=== PATIENT | female | born 1995 | race Caucasian/White ===

== ENCOUNTER 2022-11-06 18:49 | Inpatient (IN) | payer OTHER, SELFPAY ==
[2022-11-06] VITALS (9 sets, daily range): BP systolic 101–130; BP diastolic 59–75; PULSE 90–153; RESP 12–21; TEMP 36.8–37.5; O2SAT 96–100; BMI 20.9; BMI 20.3
--- NOTE | 2022-11-06 18:51 | PC.NURSE ---
at this time pt is obversed to be tachy on the monitor and pale and weak. Dr. Workman notified and came to bedside immediately. moved phototypesetting equipment monitor from another room and placed pt on monitor. on assessment of patient she denies any abd. pain nausea or vomiting. but on palpation of abdomen there is a large hard mass like object felt right above the pt umbilicus.
--- NOTE | 2022-11-06 18:53 | PC.NURSE ---
1852 pt changed into a gown, Dr. Workman at pt bedside still with ultrasound for assessment. after assessment with this nurse. after assessment pt given warm wash cloths to clean off with. pt denies any pain at this time and just reports feeling tired.
--- NOTE | 2022-11-06 19:10 | PC.NURSE ---
pt noted to still be tachycardic and weak on assessment. pt provided warm blankets and moved to room 6 for closer evaluation and further examination
--- NOTE | 2022-11-06 19:16 | HMH.EDGENADL ---
Discharge Plan Disposition Patient Disposition: Admitted As Inpatient Condition: Serious Clinical Impressions Clinical Impression: Spontaneous , Leukocytosis, Septic shock, Endometritis Discharge ED Provider: Tyson Workman General Adult HPI General Chief complaint: Vaginal Bleeding Stated complaint: Possible Miscarriage Time Seen by Provider: 11/06/22 18:55 History of Present Illness HPI narrative: History obtained from patient and grandfather. She did not feel well today and apparently laid down on the mattress at her grandfather's construction site and grandfather noted a large amount of blood on the mattress and brought her to the emergency department. She denies any pain. She states that her last menstrual period was 1 month ago. She has never been . She denies any other illness including any symptoms of URI, no vomiting or diarrhea. Grandfather states that he has been telling her for the past couple of months that she looks , abdomen becoming enlarged. Related Data Allergies Allergy/AdvReac Type Severity Reaction Status Date / Time No Known Allergies Allergy Verified 11/06/22 20:01 [facility] Disclaimer: The information contained in this section may have been updated after the patient was seen, as this information can be updated by other users. Medical History (Updated 11/06/22 @ 20:21 by Tyson Workman MD) SIRS (systemic inflammatory response syndrome) Social History Smoking Status: Never smoker ROS Obtained: Yes Systems reviewed as appropriate & no additional complaints except as documented Constitutional Constitutional: Denies fever(s), Denies headache(s) and Denies weakness ENT Ears, Nose, Mouth, and Throat: Denies headache(s), Denies nasal discharge and Denies sore throat Cardiovascular Cardiovascular: Denies chest pain Respiratory Respiratory: Denies shortness of breath and Denies cough Gastrointestinal Gastrointestingal: Denies abdominal pain, constipation, diarrhea or vomiting Genitourinary Female Genitourinary: Denies difficulty voiding, Denies dysuria and Denies flank pain Musculoskeletal Musculoskeletal: Denies numbness Neurologic Neurologic: Denies headache(s), Denies numbness and Denies weakness Physical Exam General General appearance: alert Comment: Tachycardic and pale. Appears apprehensive. Head Head exam: atraumatic and normocephalic Eye Eye exam: Present normal appearance and EOMI ENT ENT exam: Present mucous membranes moist Neck Neck exam: Present normal inspection and trachea midline Chest Chest inspection: Present normal inspection and symmetric chest wall rise Respiratory Respiratory exam: Present normal lung sounds bilaterally; Absent respiratory distress Cardiovascular Cardiovascular exam: Present normal rhythm, tachycardia and normal heart sounds Abdominal Exam Abdominal exam: Present soft and normal bowel sounds; Absent tenderness, guarding, rebound or rigidity Comment: Palpable mass in the suprapubic area consistent with uterine fundus. Extremities Exam Extremities exam: Present normal inspection Neurological Exam Neurological exam: Present alert and oriented X3 Psychiatric Psychiatric exam: Present normal affect and normal mood Skin Skin exam: Present warm and dry Medical Decision Making Rene Inquiry Pt receiving controlled substance: No Vital Signs: 11/06/22 18:49 Temperature 98.3 F Temperature Source Oral Pulse Rate [Left Radial] 153 H Respiratory Rate 20 Blood Pressure [Right Arm] 109/68 L Blood Pressure Mean [Right Arm] 81 Blood Pressure Source [Right Arm] Automatic Cuff Blood Pressure Position [Right Arm] Sitting 02 Sat by Pulse Oximetry 100 Oxygen Delivery Method Room Air Lab Data Lab results reviewed: Yes I reviewed the patient's lab results. Lab Results 11/06/22 19:00: WBC 34.0 H*, RBC 3.56 L, Hgb 10.9 L, Hct 32.6 L, MCV 91.5, MCH 30.7, MCHC 33.6, RDW 13.6, Plt Count 477 H, MPV 8.6, Neut % (
--- NOTE | 2022-11-06 19:20 | PC.NURSE ---
assisted with vaginal exam. PT tolerated well. Placed back in a comfortable position.
--- NOTE | 2022-11-06 19:27 | PC.NURSE ---
this nurse and NUNO Cheek still at pt bedside for further assessment and questioning about events leading up to her coming to the ED. pt continues to state that she believes she is having a miscarriage but when asked to go into further detail as to why she thought that she stated i just do with no further explanation. pt denies any pain or discomfort at this time
--- NOTE | 2022-11-06 19:29 | PC.NURSE ---
Called OB to have Dr. Escudero come down and consult
[2022-11-06 19:31] LABS: Basophils # 0.1 K/mm3 (0-0.2); Basophils % 0.2 % (0.1-2.0); Eosinophils % 0.1 % (0.1-12.0); Hematocrit 32.6 % (37.0-47.0); Hemoglobin 10.9 g/dL (12.2-16.2); Lymphocytes # 1.7 K/mm3 (0.7-4.5); Lymphocytes % 4.9 % (10-50); Mean Corpuscular HGB Conc 33.6 g/dL (31.8-35.4); Mean Corpuscular Hemoglobin 30.7 pg (27.0-31.2); Mean Corpuscular Volume 91.5 fl (81-99); Mean Platelet Volume 8.6 fl (7.4-10.4); Monocytes # 1.8 K/mm3 (0.1-1.0); Monocytes % 5.2 % (1.7-9.3); Neutrophils # 30.4 K/mm3 (1.8-7.8); Neutrophils % 89.6 % (37.0-80.0); Platelet Count 477 K/mm3 (142-424); Red Blood Count 3.56 M/mm3 (4.20-5.40); Red Cell Distribution Width 13.6 % (11.5-17.5)
[2022-11-06 19:32] LABS: Anion Gap 18.1 mEq/L (5-15); Blood Urea Nitrogen 12 mg/dl (7-17); Calcium 8.9 mg/dl (8.4-10.2); Carbon Dioxide 17 mmol/L (22.0-30.0); Chloride 100 mmol/L (98-107); Creatinine Clearance Estimated 85 mL/min (50-200); Estimated Glomerular Filt Rate 75 ml/min (>60); GFR (African American) 91 ML/MIN (>60); Glucose 152 mg/dl (74-100); Potassium 4.1 mmoL/L (3.5-5.1); Sodium 131 mmol/L (136-145)
--- NOTE | 2022-11-06 19:33 | ECG_ITS ---
APPROVED REPORT Exam: Resting ECG HR:121 bpm ECG Measurements Heart Rate 121 AXES KS 125 P 77 QRSd 66 QRS 90 QT 294 T 65 QTc 366 Conclusion SINUS TACHYCARDIA O/w normal ecg UNCONFIRMED REPORT Electronically signed by : Jase Soto MD 11/07/2022 17:06:17
[2022-11-06 19:34] LABS: MANUAL DIFFERENTIAL MANUAL DIFFERENTIAL (MANUAL DIFF)
--- NOTE | 2022-11-06 19:36 | PC.NURSE ---
NUNO Cheek and this nurse at pt bedside for further assessment. during this conversation the patient went into further detail about how she started bleeding sometime today when she was sleeping and when she woke up her clothes and the bed was covered in blood. she stated she looked under the covers and that she appeared to have a miscarriage. when asked about her last menstrual cycle she then tells us that her last menstrual cycle was actually 5 months ago and when i had her describe what it looked like to her she held her hands out and made the shape of the size of an orange and said the head was about this big' and held up arms to about 12 inches and said the body was about this long. this nurse asked the patient where the baby was and she said it was under the blankets in the house her grandpa was working at and that she told her grandpa about it. when i asked the grandpa he stated he knew about it but didnt look under the covers.
[2022-11-06 19:37] LABS: HCG Qualitative, Serum Positive (Negative)
--- NOTE | 2022-11-06 19:39 | PC.NURSE ---
pt states that last night while at work she started around 9:30pm with sharp stabbing abdominal pain that lasted until the morning around 5:30am when the pain eased up. States that around 10-11am she started with vaginal bleeding and then around noon she miscarried while sleeping. At this time asked the pt to describe what the fetus looked like. Pt nods that feet and hands were present and it looked like a baby.
--- NOTE | 2022-11-06 19:40 | PC.NURSE ---
called [place] dispatch for assistance in getting officers and EMS over to the reported house. they stated it wasnt in their district and to call [place] dispatch
--- NOTE | 2022-11-06 19:41 | PC.NURSE ---
Dr. Escudero consulting with Dr. Workman at this time.
--- NOTE | 2022-11-06 19:43 | PC.NURSE ---
Dr. Escudero at BS
--- NOTE | 2022-11-06 19:44 | PC.NURSE ---
called [place] dispatch and explained to them the patient story and that we believe there could possible be a full term baby in the home the patient came from that we are unaware if its alive or not and that they need to send an office out with ems to the house.
--- NOTE | 2022-11-06 19:44 | PC.NURSE ---
A Pablo RN at bedside with Dr. Garcia for vaginal exam.
--- NOTE | 2022-11-06 19:50 | PC.NURSE ---
Assisted Dr. Humphrey with pelvic exam. PT tolerated well. Pt put back to a comfortable position and warm blankets was given.
--- NOTE | 2022-11-06 19:51 | PC.NURSE ---
Addendum entered by Kathi Masters RN 11/07/22 11:48: *unacceptable (spelling error) Original Note: spoke with [place] dispatch again who stated that they werent able to send an officer or ems at this time and that they were going to have to have the grandfather of the patient who has the white to the house bring the keys there and tell them [place]. this nurse spoke with the grandfather while talking to dispatch who gave permission for the police to enter the house and check if the baby is alive. dispatch stated that it didnt matter and that he would have to bring the keys himself. this nurse explained that that was acceptable and that their could be an alive baby in that house in distress and asked them to have the office call me immediately.
--- NOTE | 2022-11-06 19:53 | PC.NURSE ---
Dr. Garcia would like [facility] called in for a pelvic u/s. Radiology notified
--- NOTE | 2022-11-06 19:54 | PC.NURSE ---
Pt asking about grandfather and if her was outside. States that she is staying the night so he could go home if he wanted too. Went out side to lobby and front entrance to find grandfather who is not present at this time, pt aware
--- NOTE | 2022-11-06 19:54 | US_ITS ---
PROCEDURE INFORMATION: Exam: US Nonobstetric Pelvis; Complete Exam date and time: 11/06/2022 8:16 PM Age: 27 years old Clinical indication: Patient HX: PT presented to er with heavy vag bleeding x 8 hrs-- it was then discovered PT delivered at home poss full term baby -- it was later determined placenta was delivered by ob at time of US; Additional info: S/P delivery of poss 5 mn fetus, vaginal bleeding TECHNIQUE: Imaging protocol: Transabdominal pelvic nonobstetric ultrasound. Complete exam. Real time ultrasound with image documentation. COMPARISON: No relevant prior studies available. FINDINGS: Uterus: Enlarged uterus measures 18.7 x 6.9 x 10.3 cm. Questionable retained placental tissue along the posterior uterine wall. Endometrial stripe thickness: Poorly delineated heterogeneously thickened focally hyperemic endometrium measuring approximately 1.7-2.1 cm in thickness containing debris, blood/fluid. Right ovary/adnexa: Measures approximately 6.3 mL. Left ovary/adnexa: Measures approximately 8.0 mL. Intraperitoneal space: No discernible adnexal mass or abnormality. No free fluid within the pelvis. Urinary bladder: Distended urinary bladder appears unremarkable. IMPRESSION: 1. Heterogeneously thickened focally hyperemic endometrium demonstrating blood/debris with questionable retained placental tissue along the posterior uterine wall. 2. Differential diagnosis includes normal changes versus retained products of conception and less likely acute endometritis/PID. 3. Recommend correlation with pertinent clinical history and follow-up as indicated.
[2022-11-06 19:58] LABS: Coronavirus 19, PCR Not Detected (NotDetected); Influenza A, PCR Not Detected (NotDetected); Influenza B, PCR Not Detected (NotDetected)
--- NOTE | 2022-11-06 19:59 | PC.NURSE ---
this nurse spoke to Officer Verna and expressed to him the same concern and that we have to assume the baby is alive and possibly in distress and that they need to use whatever means necessary to get into the house. he said since the story wasnt clear that he will have to call his supervisor [employer] to see what he can do
[2022-11-06 20:09] LABS: Lactic Acid 4.4 mmol/L (0.7-2.1)
--- NOTE | 2022-11-06 20:09 | EXP.HP ---
History of Present Illness *Admission Date: 11/06/22 *Reason for visit:: Spontaneous of unknown gestational age, SIRS *History of present illness: Ms Donna Davison is a 27 yo female who presented to ED with complaint of vaginal bleeding. She stated she had not had a period for 5-6 months. She states she worked 3rd shift last night and started having sharp abdominal pains. Pain stopped around 0530. After she got off of work this morning she went to the construction site/home that was being remodeled by her grandfather. The house is vacant but had a mattress in one of the rooms. She states she woke up around noon in a pool of blood. She told the RN that she had a baby at the construction site on that mattress. She stated she did not know she was prior to delivery. She stated her and her grandfather covered the baby up with a blanket after delivery. She presented to the ED about 1850 this evening. Unsure of what happened between delivery around noon per patient and arrival to ED by private vehicle. [facility] Disclaimer: The information contained in this section may have been updated after the patient was seen, as this information can be updated by other users. Social History Smoking Status: Never smoker alcohol intake: current current occupational status: employed Travel in the last 8 weeks: None Review of Systems Review of Systems Review of systems:: pertinent systems reviewed and negative unless documented below Constitutional Constitutional: Denies headache(s) and Denies weakness ENT Ears, Nose, Mouth, and Throat: Denies headache(s) *Cardiovascular Cardiovascular: Denies chest pain and Denies dyspnea *Respiratory Respiratory: Denies dyspnea *Gastrointestinal Gastrointestinal: Denies abdominal pain, Denies nausea and Denies vomiting *Musculoskeletal Musculoskeletal: Denies numbness *Neurologic Neurologic: Denies headache(s), Denies numbness and Denies weakness Meds Home Medications and Allergies New Prescriptions to Start Prescriptions: Allergies Allergy/AdvReac Type Severity Reaction Status Date / Time No Known Allergies Allergy Verified 11/06/22 20:01 Exam Data for Last 24 hours Vital signs and Labs for Last 24 Hours: Temp Pulse Resp BP Pulse Ox 98.3 F 153 H 20 109/68 L 100 11/06/22 18:49 11/06/22 18:49 11/06/22 18:49 11/06/22 18:49 11/06/22 18:49 Laboratory Results - last 24 hr 11/06/22 19:00: WBC 34.0 H*, RBC 3.56 L, Hgb 10.9 L, Hct 32.6 L, MCV 91.5, MCH 30.7, MCHC 33.6, RDW 13.6, Plt Count 477 H, MPV 8.6, Neut % (Auto) 89.6 H, Lymph % (Auto) 4.9 L, [place] % (Auto) 5.2, Eos % (Auto) 0.1, Baso % (Auto) 0.2, Neut # (Auto) 30.4 H, Lymph # (Auto) 1.7, [place] # (Auto) 1.8 H, Eos # (Auto) 0.0, Baso # (Auto) 0.1 11/06/22 19:00: Sodium 131 L, Potassium 4.1, Chloride 100, Carbon Dioxide 17 L, Anion Gap 18.1 H, BUN 12, Creatinine 0.90, Estimated Creat Clear 85, Estimated GFR 75, Est GFR ( Amer) 91, Glucose 152 H, Calcium 8.9 11/06/22 19:00: Serum HCG, Qual Positive I & O for Last 24 hours: Intake & Output 11/03/22 11/04/22 11/05/22 11/06/22 23:59 23:59 23:59 23:59 Weight 126 lb Constitutional Constitutional: no acute distress *Routine HEENT Exam Head: Present normocephalic and atraumatic Eye: Absent conjunctivae pink ENT: Present mucous membranes moist *Routine Neck Exam Neck: Present full ROM *Routine Respiratory Exam Respiratory: Present CTA bilaterally and normal respiratory effort *Routine Cardiovascular Exam Cardiovascular: Present RRR *Routine Abdominal Exam Abdominal: Present soft; Absent tenderness or distended Comments: Uterine fundus firm and below umbilicus *Routine Rectal Exam Rectal:: deferred *Routine Genitalia Exam Genitalia:: normal female *Routine Extremities Exam Extremities: Absent edema or calf tenderness *Routine Neurological Exam Neurological: Present alert, oriented X3 and
--- NOTE | 2022-11-06 20:09 | PC.NURSE ---
Dr. Workman notified of critical lactic of 4.4
--- NOTE | 2022-11-06 20:14 | PC.NURSE ---
Armida with [facility] called in report and stated they were leaving the house the patient was at during the events reported. they reported they found what appears to be a full term wrapped up in a moving blanket . they reported the baby to be on arrival. eta about 20-30 minutes out.
--- NOTE | 2022-11-06 20:34 | PC.NURSE ---
Dr. Escudero at BS
[2022-11-06 20:42] LABS: Lymphocytes % 6 % (10-50); Monocytes % 2 % (2-9); Neutrophils % 92 % (42-76); Platelet Estimate Normal; RBC Morphology Normal; Total Cells Counted 100
--- NOTE | 2022-11-06 20:45 | PC.NURSE ---
Addendum entered by Kathi Masters RN 11/07/22 12:03: This baby was not a patient in the ED and the below findings are based upon my visual and physical assessment of the baby when he arrived to the ED. EMS also reported baby's rhythm on the monitor was initially asystole and remained the same during the entire transport to our facility. Original Note: pt baby arrived via [facility] at 2044. per EMS they put the baby on the monitor and never had a heart rate. on assessment the pt is wrapped in a blanket, stiff, cold and exhibits no movement with no palpable pulses or respirations. Dr. Kota gonzalez
--- NOTE | 2022-11-06 20:47 | PC.NURSE ---
2046- Dr. Escudero at baby bedside for assessment of the placenta to try to determine if any of it could still be in the mother.
--- NOTE | 2022-11-06 20:47 | PC.NURSE ---
pt baby arrived with what ems reports is a grocery bag full of bloody clothes they retrieved from the scene. bag to stay in EMS custody until police of chief arrived.
--- NOTE | 2022-11-06 20:50 | PC.NURSE ---
2049 [place] police present to ER for additional assistance if needed.
--- NOTE | 2022-11-06 20:56 | PC.NURSE ---
2055 Liner Installer Korey Mckeon arrived at baby bedside and reports the [place] cash processing specialist will be arriving for investigation
--- NOTE | 2022-11-06 21:28 | PC.NURSE ---
212 [employer] [employer] newsperson at baby bedside
--- NOTE | 2022-11-06 21:55 | PC.NURSE ---
0779 Police at pt bedside for questioning at this time
--- NOTE | 2022-11-06 22:20 | PC.NURSE ---
risk and compliance analytics director Rodriguez and communications manager Vance both arrived around approx 2215. NUNO Cheek charge nurse had called workday manager who then followed the chain of command for further resources.
--- NOTE | 2022-11-06 23:13 | PC.NURSE ---
Report received from Gerard Masters RN
--- NOTE | 2022-11-06 23:29 | PC.NURSE ---
Hospitalist, Sully at BS
--- NOTE | 2022-11-06 23:47 | EXP.MED.CON ---
History of Present Illness *Admission Date: 11/06/22 *History of present illness: This is a 27 year old female admitted to the OB service for septic shock likely secondary to endometritis. Internal Medicine was consulted for aiding in management of septic shock.? This is a 27 year old female who presented? to the ED this evening around 7 pm for evaluation of vaginal bleeding. She reported to OB that she had not had her menstrual cycle in 5-6 months. She reports pain that started overnight and stopped around 5:30. She was leaving workt at that time and went to her grandfather's construction site, a home he was remodeling, and laid down on the mattress at the construction site. She woke up around noon with a pool of blood surrounding her. She reports not knowing she was prior to delivering.? On arrival to the emergency department she was noted to be tachycardic in the 150s, with BP of 109/68. Lab work was obtained and notable for leukocytosis with WBC of 34, lactic acid of 4.4, Anion gap of 18. Pt was admitted to OB Services and internal medicine was asked to consult by OB for further evaluation of septic shock.? [facility] Disclaimer: The information contained in this section may have been updated after the patient was seen, as this information can be updated by other users. Social History (Updated 11/06/22 @ 22:06 by Sully Escudero DO) Smoking Status: Never smoker alcohol intake: current current occupational status: employed Travel in the last 8 weeks: None Review of Systems Review of Systems Review of systems:: pertinent systems reviewed and negative unless documented below Constitutional Constitutional: Denies headache(s) and Denies weakness ENT Ears, Nose, Mouth, and Throat: Denies headache(s) *Musculoskeletal Musculoskeletal: Denies numbness *Neurologic Neurologic: Denies headache(s), Denies numbness and Denies weakness Psychiatric Psychiatric: Denies suicidal ideation Exam Data for Last 24 hours Vital signs and Labs for Last 24 Hours: Temp Pulse Resp BP Pulse Ox 98.3 F 90 12 101/59 L 98 11/06/22 18:49 11/06/22 22:30 11/06/22 22:30 11/06/22 22:30 11/06/22 22:30 Laboratory Results - last 24 hr 11/06/22 19:00: WBC 34.0 H*, RBC 3.56 L, Hgb 10.9 L, Hct 32.6 L, MCV 91.5, MCH 30.7, MCHC 33.6, RDW 13.6, Plt Count 477 H, MPV 8.6, Neut % (Auto) 89.6 H, Lymph % (Auto) 4.9 L, [place] % (Auto) 5.2, Eos % (Auto) 0.1, Baso % (Auto) 0.2, Neut # (Auto) 30.4 H, Lymph # (Auto) 1.7, [place] # (Auto) 1.8 H, Eos # (Auto) 0.0, Baso # (Auto) 0.1, Total Counted 100, Neutrophils % (Manual) 92 H, Lymphocytes % (Manual) 6 L, Monocytes % (Manual) 2, Platelet Estimate Normal, RBC Morphology Normal 11/06/22 19:00: Sodium 131 L, Potassium 4.1, Chloride 100, Carbon Dioxide 17 L, Anion Gap 18.1 H, BUN 12, Creatinine 0.90, Estimated Creat Clear 85, Estimated GFR 75, Est GFR ( Amer) 91, Glucose 152 H, Calcium 8.9 11/06/22 19:00: Serum HCG, Qual Positive 11/06/22 19:03: Blood Type A Positive, Antibody Screen Negative 11/06/22 19:44: Lactate 4.4 H 11/06/22 19:54: SARS-CoV-2 (PCR) Not detected, Influenza A Untype (PCR) Not detected, Influenza Type B (PCR) Not detected I & O for Last 24 hours: Intake & Output 11/03/22 11/04/22 11/05/22 11/06/22 23:59 23:59 23:59 23:59 Weight 57.153 kg Meds Home Medications and Allergies New Prescriptions to Start Prescriptions: Allergies Allergy/AdvReac Type Severity Reaction Status Date / Time No Known Allergies Allergy Verified 11/06/22 20:01 Results Labs Result Diagrams: 11/06/22 19:00 11/06/22 19:00 Labs: Abnormal lab results 11/06/22 11/06/22 11/06/22 Range/Units 19:00 19:00 19:44 WBC 34.0 H* (4.8-10.8) K/mm3 RBC 3.56 L (4.20-5.40) M/mm3 Hgb 10.9 L (12.2-16.2) g/dL Hct 32.6 L (37.0-47.0) % Plt Count 477 H (142-424) K/mm3 Neut % (Auto) 89.6 H (37.0-80.0) % Lymph % (Auto) 4.9 L (10-50)
[2022-11-06 23:49] LABS: Reflex Lactic Add Lactic Reflex
--- NOTE | 2022-11-06 23:51 | PC.NURSE ---
Patient arrived to the unit at this time accompanied by 2RN's
--- NOTE | 2022-11-06 23:57 | PC.NURSE ---
Donna Andrade APRN with behavioral health is at bedside at this time. Patient will remain 1:1.
[2022-11-07] VITALS (21 sets, daily range): BP systolic 96–127; BP diastolic 49–84; PULSE 69–89; RESP 15–18; TEMP 36.3–36.9; O2SAT 97–100; BMI 20.2
[2022-11-07 00:02] LABS: Lactic Acid Follow Up (RFLX 1) 0.8 mmol/L (0.7-2.1)
--- NOTE | 2022-11-07 00:47 | EXP.BH.CONS ---
History of Present Illness *Admission Date: 11/06/22 *Reason for visit:: psychiatric interview *History of present illness: Interview was conducted at bedside in room 276. Patient stated her name and that she was from [place]. -she states that this all started yesterday -she was at work; works at [employer]; went to the nurse at work around 0130 cause of sharp pains in her stomach -the nurse there told her to go to the ER for the pains -she states that she ended up leaving work; but didn't think that she could drive home -so she sat in her car and waited; around 5:30am; she states that the pain started to ease up so she drove home -she states that when she got home; she showered; then went down to her grandfathers house and went to sleep She then woke back up around 12:30pm on 11/06/2022. -she states that she had a lot of pains at this time -she realized at some point that she was having a baby -she states that she didn't know she was -she had taken tests; but they were all negative -she is sexually active; has a boyfriend -she states that she has no idea how far along she could have been; and was terrified She states that there were people there at the house putting in windows. -her grandfathers house is currently being renovated -she states that nobody came in her room -she states that she didn't call 911 or anyone at this time; cause her phone was -she states that she then went back to sleep -states that the baby wasn't breathing; not crying or moving; so she put it under the blanket with her and went back to sleep -reports she didn't call anyone or go to the workers at the house cause she was scared She woke up around 5:30pm. -her grandfather wasn't there; he had gone to his other house -she states that she told him she didn't think she could drive home cause she didn't feel good -he came to the house to get her to bring her to the ER -this is when she told grandfather that she had a baby -they left the baby at the house; she reports they did this cause it wasn't alive I asked her some background questions: -she graduated HS in 2013 -from [employer] -she had a 3.7 GPA -went to college -at [employer] -for criminal justice -completed 2 years of college -she quit school to start working; was at [employer]; then went to [employer] -she states that she had to quit cause she had a car payment and couldn't do school and work -but her car is paid off now -she has a 2016 Hyundai At this point, she started opening up more. Affect changed; not as flat. Was smiling; joking. I asked what she did at work. 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 -she played for the [employer] team in the 8th grade -then her 4 years of high school ORIENTATION QUESTIONS: (her answers are as follows) -Friday; well...actually -2022 -[facility] -in [facility] -it is November 07 -immediate recall 11/08; 5 minute recall 11/08 -able to name objects in the room without difficulty Asked: What does the following mean: 'Don't throw rocks at glass houses?' Patient Replied: 'Cause you will break the house' Asked: If you found a wallet in the road; with $1000 handley; and an ID with a phone number; what would you do? Patient Replied: 'Find them and return it' Reports that she has 2 dogs at home. -they are mixed -not really sure their breed I again asked her why she didn't call anyone when she delivered the baby. -she replies that she was terrified and didn't know what to do -so she went back to sleep -she states that her boyfriend doesn't know about any of this right now -she denies that she has any other children -asked her if she wanted kids and her reply was 'No. Not right now.' -she states that she doesn't know if she had a boy or a girl -that she didn't look -I asked her
--- NOTE | 2022-11-07 04:14 | PC.NURSE ---
Addendum entered by Darlene Yoder RN 11/07/22 04:19: Please note that below note is in regards to this RN's initial assessment upon admission to the unit. Original Note: Patient uterus is firm upon palpation and located at 1 below umbilicus. No bleeding is observed from fundal massage. Normal bleeding is observed.
--- NOTE | 2022-11-07 04:41 | PC.NURSE ---
Patient has been resting comfortably throughout the night. No signs of distress noted, respirations equal and unlabored. Patient has since remained afebrile after administration if Tylenol earlier in the shift. Patient uterus is deviated to the right and firm at the umbilicus. Patient denies any pain. Patient remains 1:1.
--- NOTE | 2022-11-07 07:10 | HMH.PHAINT1 ---
Pharmacy Intervention Comments: MEDICATION RECONCILIATION COMPLETED ON PATIENT USING EXTERNAL FILL HISTORY FROM PHARMACY. -QAMAR HUITRON, MARGARITOD
--- NOTE | 2022-11-07 07:27 | PC.NURSE ---
Report given to Alma Delia Shetty RN
[2022-11-07 07:28] LABS: Basophils % 0.2 % (0.1-2.0); Eosinophils % 0.2 % (0.1-12.0); Lymphocytes # 1.3 K/mm3 (0.7-4.5); Mean Corpuscular HGB Conc 33.5 g/dL (31.8-35.4); Mean Corpuscular Hemoglobin 30.9 pg (27.0-31.2); Mean Corpuscular Volume 92.4 fl (81-99); Mean Platelet Volume 9.1 fl (7.4-10.4); Monocytes # 0.7 K/mm3 (0.1-1.0); Monocytes % 5.8 % (1.7-9.3); Neutrophils # 9.9 K/mm3 (1.8-7.8); Neutrophils % 82.9 % (37.0-80.0); Platelet Count 216 K/mm3 (142-424); Red Blood Count 2.09 M/mm3 (4.20-5.40); Red Cell Distribution Width 13.9 % (11.5-17.5)
[2022-11-07 07:30] LABS: Alanine Aminotransferase 13 U/L (12-78); Albumin Level 2.2 g/dl (3.5-5.0); Albumin/Globulin Ratio 1.1 (1.1-1.8); Alkaline Phosphatase 68 U/L (38-126); Anion Gap 3.6 mEq/L (5-15); Aspartate Amino Transferase 25 U/L (14-36); Bilirubin,Total 0.3 mg/dl (0.2-1.3); Blood Urea Nitrogen 11 mg/dl (7-17); Calcium 7.3 mg/dl (8.4-10.2); Carbon Dioxide 22 mmol/L (22.0-30.0); Chloride 110 mmol/L (98-107); Creatinine Clearance Estimated 109 mL/min (50-200); Estimated Glomerular Filt Rate 100 ml/min (>60); GFR (African American) 121 ML/MIN (>60); Glucose 84 mg/dl (74-100); Potassium 3.6 mmoL/L (3.5-5.1); Sodium 132 mmol/L (136-145); Total Protein,Serum 4.2 g/dl (6.3-8.2)
[2022-11-07 07:41] LABS: Hematocrit 19.3 % (37.0-47.0)
[2022-11-07 07:50] LABS: Erythrocyte Sedimentation Rate 64 mm/hr (0-20)
[2022-11-07 07:54] LABS: C-Reactive Protein 47.3 mg/L (0-4)
[2022-11-07 07:58] LABS: Hemoglobin 6.5 g/dL (12.2-16.2)
--- NOTE | 2022-11-07 08:25 | P.CONPHA_ITS ---
Pharmacy Consult Date: 11/07/22 Time: 08:25 Referring provider: DR. THORNTON Reason for Consult:: GENTAMICIN DOSING Allergies Allergy/AdvReac Type Severity Reaction Status Date / Time No Known Allergies Allergy Verified 11/06/22 20:01 Home Medications Medication Instructions Recorded Confirmed Type ergocalciferol (vitamin D2) 1,250 1,250 mcg PO WEEKLY Supplement 11/07/22 11/07/22 History mcg (50,000 unit) capsule New Prescriptions to Start Prescriptions: Height: 1.68 m Weight: 57.153 kg Laboratory Results:: Laboratory Results - last 24 hr 11/06/22 19:00: WBC 34.0 H*, RBC 3.56 L, Hgb 10.9 L, Hct 32.6 L, MCV 91.5, MCH 30.7, MCHC 33.6, RDW 13.6, Plt Count 477 H, MPV 8.6, Neut % (Auto) 89.6 H, Lymph % (Auto) 4.9 L, [place] % (Auto) 5.2, Eos % (Auto) 0.1, Baso % (Auto) 0.2, Neut # (Auto) 30.4 H, Lymph # (Auto) 1.7, [place] # (Auto) 1.8 H, Eos # (Auto) 0.0, Baso # (Auto) 0.1, Total Counted 100, Neutrophils % (Manual) 92 H, Lymphocytes % (Manual) 6 L, Monocytes % (Manual) 2, Platelet Estimate Normal, RBC Morphology Normal 11/06/22 19:00: Sodium 131 L, Potassium 4.1, Chloride 100, Carbon Dioxide 17 L, Anion Gap 18.1 H, BUN 12, Creatinine 0.90, Estimated Creat Clear 85, Estimated GFR 75, Est GFR ( Amer) 91, Glucose 152 H, Calcium 8.9 11/06/22 19:00: Serum HCG, Qual Positive 11/06/22 19:03: Blood Type A Positive, Antibody Screen Negative, Crossmatch (AHG) See Detail 11/06/22 19:44: Lactate 4.4 H 11/06/22 19:54: SARS-CoV-2 (PCR) Not detected, Influenza A Untype (PCR) Not detected, Influenza Type B (PCR) Not detected 11/06/22 23:46: Lactate 0.8 11/07/22 07:05: ESR 64 H 11/07/22 07:05: C-Reactive Protein 47.3 H 11/07/22 07:05: WBC 12.0 H D, RBC 2.09 L D, Hgb 6.5 L* D, Hct 19.3 L*, MCV 92.4, MCH 30.9, MCHC 33.5, RDW 13.9, Plt Count 216 D, MPV 9.1, Neut % (Auto) 82.9 H, Lymph % (Auto) 11.0, [place] % (Auto) 5.8, Eos % (Auto) 0.2, Baso % (Auto) 0.2, Neut # (Auto) 9.9 H, Lymph # (Auto) 1.3, [place] # (Auto) 0.7, Eos # (Auto) 0.0, Baso # (Auto) 0.0 11/07/22 07:05: Sodium 132 L, Potassium 3.6, Chloride 110 H, Carbon Dioxide 22, Anion Gap 3.6 L, BUN 11, Creatinine 0.70 D, Estimated Creat Clear 109, Estimated GFR 100, Est GFR ( Amer) 121 D, Glucose 84 D, Calcium 7.3 L, Total Bilirubin 0.3, AST 25, ALT 13, Alkaline Phosphatase 68, Total Protein 4.2 L, Albumin 2.2 L, Globulin 2.0, Albumin/Globulin Ratio 1.1 Assessment and Plan Assessment and plan all Dx Assessment and Plan for all problems:: Pharmacokinetic dosing service Age: 27 yo Serum creatinine: 0.7 mg/dL Height: 66.1 Inches Weight (kg): 57.153 Assessment: IBW (kg): 59.53 Dosing wt(kg): 57.2 Estimated Creatinine clearance (ml/min): 108.9 CRCL method: Cockcroft and Gault using ibw(default). Drug selected: Gentamicin Loading dose (mg): 0 Vd (liters): 17.2 (factor used: 0.3 L/kg) Asher (hr-1): 0.380 Half life (hrs): 1.82 Recommended dose: 320 mg Interval: 24 hrs Infusion time (hrs): 1 Predicted peak (mcg/mL): 15.5 Predicted trough (mcg/mL): 0.00 Recommendations: Give Gentamicin 320 mg q 24 hrs with an expected Cpeak of 15.5 mcg/ml and an expected Ctrough of 0.00 mcg/ml.
--- NOTE | 2022-11-07 08:40 | PC.NURSE ---
Samia from lab called to notify units of blood are ready
--- NOTE | 2022-11-07 09:20 | EXP.PN ---
Subjective *Date: 11/07/22 *Time: 18:21 Interval history: Date of service November 07, 2022 The patient reports no acute events overnight. She denies fever or chills. She is tolerating her breakfast with no associated nausea, vomiting or diarrhea. She has a sitter at bedside. [facility] has evaluated her. We have reviewed and discussed her morning labs. Her CBC identifies an improved leukocytoses with a hemoglobin 6.5. Her electrolytes and creatinine are normal. Her lactic acid has normalized. Nursing staff report that she remains afebrile with stable vital signs and saturating appropriately on room air. Exam Data for Last 24 hours Vital signs and Labs for Last 24 Hours: Temp Pulse Resp BP Pulse Ox 98.3 F 78 16 115/57 L 98 11/07/22 09:15 11/07/22 09:15 11/07/22 09:15 11/07/22 09:15 11/07/22 09:15 Laboratory Results - last 24 hr 11/06/22 19:00: WBC 34.0 H*, RBC 3.56 L, Hgb 10.9 L, Hct 32.6 L, MCV 91.5, MCH 30.7, MCHC 33.6, RDW 13.6, Plt Count 477 H, MPV 8.6, Neut % (Auto) 89.6 H, Lymph % (Auto) 4.9 L, [place] % (Auto) 5.2, Eos % (Auto) 0.1, Baso % (Auto) 0.2, Neut # (Auto) 30.4 H, Lymph # (Auto) 1.7, [place] # (Auto) 1.8 H, Eos # (Auto) 0.0, Baso # (Auto) 0.1, Total Counted 100, Neutrophils % (Manual) 92 H, Lymphocytes % (Manual) 6 L, Monocytes % (Manual) 2, Platelet Estimate Normal, RBC Morphology Normal 11/06/22 19:00: Sodium 131 L, Potassium 4.1, Chloride 100, Carbon Dioxide 17 L, Anion Gap 18.1 H, BUN 12, Creatinine 0.90, Estimated Creat Clear 85, Estimated GFR 75, Est GFR ( Amer) 91, Glucose 152 H, Calcium 8.9 11/06/22 19:00: Serum HCG, Qual Positive 11/06/22 19:03: Blood Type A Positive, Antibody Screen Negative, Crossmatch (AHG) See Detail 11/06/22 19:44: Lactate 4.4 H 11/06/22 19:54: SARS-CoV-2 (PCR) Not detected, Influenza A Untype (PCR) Not detected, Influenza Type B (PCR) Not detected 11/06/22 23:46: Lactate 0.8 11/07/22 07:05: ESR 64 H 11/07/22 07:05: C-Reactive Protein 47.3 H 11/07/22 07:05: WBC 12.0 H D, RBC 2.09 L D, Hgb 6.5 L* D, Hct 19.3 L*, MCV 92.4, MCH 30.9, MCHC 33.5, RDW 13.9, Plt Count 216 D, MPV 9.1, Neut % (Auto) 82.9 H, Lymph % (Auto) 11.0, [place] % (Auto) 5.8, Eos % (Auto) 0.2, Baso % (Auto) 0.2, Neut # (Auto) 9.9 H, Lymph # (Auto) 1.3, [place] # (Auto) 0.7, Eos # (Auto) 0.0, Baso # (Auto) 0.0 11/07/22 07:05: Sodium 132 L, Potassium 3.6, Chloride 110 H, Carbon Dioxide 22, Anion Gap 3.6 L, BUN 11, Creatinine 0.70 D, Estimated Creat Clear 109, Estimated GFR 100, Est GFR ( Amer) 121 D, Glucose 84 D, Calcium 7.3 L, Total Bilirubin 0.3, AST 25, ALT 13, Alkaline Phosphatase 68, Total Protein 4.2 L, Albumin 2.2 L, Globulin 2.0, Albumin/Globulin Ratio 1.1 11/07/22 08:17: Blood Type Confirm A Positive I & O for Last 24 hours: Intake & Output 11/04/22 11/05/22 11/06/22 11/07/22 23:59 23:59 23:59 23:59 Intake Total 0 / 0 0 / 0 Balance 0 / 0 0 / 0 Weight 57.153 kg 57.153 kg Constitutional Constitutional: no acute distress, thin and cooperative *Routine HEENT Exam Head: Present normocephalic Eye: Present EOMI and PERRL ENT: Present mucous membranes moist *Routine Neck Exam Neck: Present supple; Absent lymphadenopathy *Routine Respiratory Exam Respiratory: Present CTA bilaterally, normal respiratory effort and symmetric chest movement *Routine Cardiovascular Exam Cardiovascular: Present RRR; Absent murmur *Routine Abdominal Exam Abdominal: Present soft and normoactive bowel sounds; Absent tenderness *Routine Extremities Exam Extremities: Present full ROM, pulses intact and normal capillary refill; Absent cyanosis, clubbing or edema *Routine Skin Exam Skin: Present warm; Absent rash *Routine Neurological Exam Neurological: Present alert, oriented X3, moving all extremities, vision grossly intact, hearing grossly intact and normal speech; Absent CN II-XII intact or sensory deficit Routine Psychiatric Exam Psychiatric: Present cooperative Comments: Dysthymic Assessment
--- NOTE | 2022-11-07 09:22 | PC.NURSE ---
0920 RN at bedside for blood transfusion, pt tolerating transfusion well.
[2022-11-07 09:34] LABS: Gentamicin,Random 4.4 ug/ml
[2022-11-07 12:54] LABS: Hematocrit 31.2 % (37.0-47.0)
[2022-11-07 13:00] LABS: Hemoglobin 10.9 g/dL (12.2-16.2)
--- NOTE | 2022-11-07 14:13 | EXP.ACUTE.PN ---
Subjective *Date: 11/07/22 *Time: 14:13 Interval history: Resting comfortably in bed. AM Hgb resulted 6.5. She received 2 units of PRBCs this morning. She denies pain. No vaginal bleeding. Tolerating regular diet. Denies fever/chills, chest pain and shortness of breath. States she feels well. Denies symptoms of depression and anxiety. Medical Exam Vital signs and Labs for Last 24 Hours: Vital Signs Temp Pulse Pulse Resp BP BP BP 11/07/22 12:44 98.3 F 69 16 127/84 11/07/22 11:44 98.0 F 75 17 120/60 11/07/22 11:30 98.1 F 77 16 112/59 L 11/07/22 11:15 97.9 F 71 16 113/65 11/07/22 11:10 98.2 F 86 16 107/60 L 11/07/22 11:05 98.0 F 74 17 109/56 L 11/07/22 11:00 98.0 F 80 16 107/57 L 11/07/22 10:50 97.9 F 75 16 108/56 L 11/07/22 10:30 97.9 F 73 17 105/56 L 11/07/22 10:15 98.2 F 85 16 96/54 L 11/07/22 10:00 98.3 F 85 16 108/55 L 11/07/22 09:45 98.4 F 80 18 117/57 L 11/07/22 09:30 98.1 F 81 16 110/55 L 11/07/22 09:25 98.5 F 85 17 107/55 L 11/07/22 09:20 98.1 F 89 17 109/55 L 11/07/22 09:15 98.3 F 78 16 115/57 L 11/07/22 09:00 97.3 F L 76 16 117/62 11/07/22 09:00 97.3 F L 76 16 117/62 11/07/22 07:55 11/07/22 07:55 98.3 F 82 18 100/54 L 11/07/22 03:02 98.0 F 80 15 97/54 L 11/07/22 00:49 98.4 F 84 15 101/49 L 11/06/22 23:48 99.5 F 98 H 15 117/75 0301/23 23:30 98 H 15 117/75 11/06/22 23:00 95 H 14 118/62 11/06/22 22:30 90 12 101/59 L 11/06/22 22:00 106 H 21 118/71 11/06/22 21:30 122 H 14 103/65 L 11/06/22 21:00 93 H 12 110/66 11/06/22 19:30 106 H 19 130/75 11/06/22 18:49 98.3 F 153 H 20 109/68 L Pulse Ox 11/07/22 12:44 99 11/07/22 11:44 99 11/07/22 11:30 100 11/07/22 11:15 98 11/07/22 11:10 99 11/07/22 11:05 98 11/07/22 11:00 98 11/07/22 10:50 97 11/07/22 10:30 98 11/07/22 10:15 98 11/07/22 10:00 97 11/07/22 09:45 97 11/07/22 09:30 98 11/07/22 09:25 98 11/07/22 09:20 98 11/07/22 09:15 98 11/07/22 09:00 99 11/07/22 09:00 99 11/07/22 07:55 99 11/07/22 07:55 99 11/07/22 03:02 98 11/07/22 00:49 98 11/06/22 23:48 11/06/22 23:30 98 11/06/22 23:00 97 11/06/22 22:30 98 11/06/22 22:00 99 11/06/22 21:30 97 11/06/22 21:00 96 11/06/22 19:30 98 11/06/22 18:49 100 Intake and Output 11/06/22 11/07/22 11/07/22 23:59 07:59 15:59 Intake Total 2200 / 2200 500 / 500 Balance 2200 / 2200 500 / 500 Intake: Intake, Total IV Amount 2200 / 2200 Intake (Blood Product) Amt 500 / 500 Red Blood Cells Unit 250 / 250 [id number] Red Blood Cells Unit 250 / 250 [id number] Other: Number of Unmeasured Voids 1 Weight 126 lb 126 lb 0.013 oz 126 lb 0.013 oz Patient Weight 11/07/22 23:59 Weight 126 lb 0.013 oz Laboratory Results - last 24 hr 11/06/22 19:00: WBC 34.0 H*, RBC 3.56 L, Hgb 10.9 L, Hct 32.6 L, MCV 91.5, MCH 30.7, MCHC 33.6, RDW 13.6, Plt Count 477 H, MPV 8.6, Neut % (Auto) 89.6 H, Lymph % (Auto) 4.9 L, [place] % (Auto) 5.2, Eos % (Auto) 0.1, Baso % (Auto) 0.2, Neut # (Auto) 30.4 H, Lymph # (Auto) 1.7, [place] # (Auto) 1.8 H, Eos # (Auto) 0.0, Baso # (Auto) 0.1, Total Counted 100, Neutrophils % (Manual) 92 H, Lymphocytes % (Manual) 6 L, Monocytes % (Manual) 2, Platelet Estimate Normal, RBC Morphology Normal 11/06/22 19:00: Sodium 131 L, Potassium 4.1, Chloride 100, Carbon Dioxide 17 L, Anion Gap 18.1 H, BUN 12, Creatinine 0.90, Estimated Creat Clear 85, Estimated GFR 75, Est GFR ( Amer) 91, Glucose 152 H, Calcium 8.9 11/06/22 19:00: Serum HCG, Qual Positive 11/06/22 19:03: Blood Type A Positive, Antibody Screen Negative, Crossmatch (AHG) See Detail 11/06/22 19:44: Lactate 4.4 H 11/06/22 19:54: SARS-CoV-2 (PCR) Not detected, Influenza A Untype (PCR) Not detected, Influenza Type B
[2022-11-07 15:32] LABS: Gentamicin,Random 0.8 ug/ml
--- NOTE | 2022-11-07 16:13 | PC.NURSE ---
1603 RN reassessment completed at this time, no changes from AM biophysical. Pt has visitors at the bedside at this time and is sitting up talking with them. Pt has been more talkative with RN and her affect is not as flat as it was during the AM assessment. Pt denies any headache, blurred vision, spots before her eyes. Pt did have a couple of unmeasured voids this shift, denies any issues with urination. Abd soft and nontender with BS active in all quads. Lung sounds CTA, pt denies any SOB. Fundus is firm at U/2, scant lochia noted throughout the shift, pt denies passing any clots. Pt denies any pain/discomfort. Bed locked and in lowest position with side rails up x2, call light within reach, will continue to monitor.
[2022-11-07 19:15] LABS: Microscopic, Urine URINE MICROSCOPIC (MICROSCOPIC)
[2022-11-07 19:19] LABS: Amphetamine/Metha Screen,Urine Negative ng/ml (<1000); Benzodiazepines Screen,Urine Negative ng/ml (<200)
[2022-11-07 19:20] LABS: Barbiturates Screen,Urine Negative ng/ml (<200)
[2022-11-07 19:21] LABS: Cannabinoid Screen,Urine Negative ng/ml (<50); Methadone Screen,Urine Negative ng/ml (<300)
[2022-11-07 19:22] LABS: Cocaine Screen,Urine Negative ng/ml (<300)
[2022-11-07 19:23] LABS: Opiate Screen,Urine Negative ng/ml (<300); Phencyclidine Screen,Urine Negative ng/ml (<25)
[2022-11-07 19:36] LABS: Appearance,Urine SL CLOUDY (Clear); Bilirubin,Urine Negative (Negative); Blood, Urine 3+ (Negative); Color,Urine YELLOW (Yellow); Glucose,Urine (UA) Negative (Negative); Ketones,Urine Negative (Negative); Leukocyte Esterase,Urine TRACE (Negative); Nitrate,Urine Negative (Negative); Protein,Urine TRACE (Negative); Specific Gravity, Urine >= 1.030 (1.005-1.030); Urobilinogen,Urine 0.2 EU/dl (0.2)
[2022-11-07 20:42] LABS: Bacteria,Urine Trace /lpf
--- NOTE | 2022-11-07 20:52 | PC.NURSE ---
Patient's fundal check remains within normal limits. Fundus is 2 below the umbilicus and firm. Scant bleeding reported from patient.
[2022-11-08 00:24] VITALS: BP 116/68; PULSE 65; RESP 14; TEMP 36.7; O2SAT 98
[2022-11-08 04:41] VITALS: BP 122/56; PULSE 73; RESP 15; TEMP 36.7; O2SAT 98
--- NOTE | 2022-11-08 05:10 | PC.NURSE ---
Patient has rested well throughout the night. Patient remains stable and shows no signs of distress. Patient continues to deny signs and symptoms of depression or anxiety. Patient is alert and oriented x4. Lungs CTA, no edema noted, bowel sounds slightly hyperactive in all quadrants. Patient has been tolerating PO intake well. Fundal checks have remained WNL. Fundus is at 2 below the umbilicus and firm. Patient lochia is WNL and has remains scant to none. Patient has been appropriate with staff throughout this RN's shift thus far.
[2022-11-08 06:43] LABS: C-Reactive Protein 26.3 mg/L (0-4)
[2022-11-08 06:49] LABS: Basophils % 0.3 % (0.1-2.0); Eosinophils # 0.1 K/mm3 (0.0-0.4); Eosinophils % 0.6 % (0.1-12.0); Lymphocytes # 1.2 K/mm3 (0.7-4.5); Lymphocytes % 9.3 % (10-50); Mean Corpuscular HGB Conc 34.6 g/dL (31.8-35.4); Mean Corpuscular Hemoglobin 31.6 pg (27.0-31.2); Mean Corpuscular Volume 91.4 fl (81-99); Mean Platelet Volume 7.9 fl (7.4-10.4); Monocytes # 0.5 K/mm3 (0.1-1.0); Monocytes % 3.6 % (1.7-9.3); Neutrophils # 10.7 K/mm3 (1.8-7.8); Neutrophils % 86.2 % (37.0-80.0); Platelet Count 234 K/mm3 (142-424); Red Blood Count 3.06 M/mm3 (4.20-5.40); Red Cell Distribution Width 14.4 % (11.5-17.5); White Blood Count 12.4 K/mm3 (4.8-10.8)
[2022-11-08 06:51] LABS: Hemoglobin 9.7 g/dL (12.2-16.2); MANUAL DIFFERENTIAL MANUAL DIFFERENTIAL (MANUAL DIFF)
[2022-11-08 07:01] LABS: Erythrocyte Sedimentation Rate 41 mm/hr (0-20)
[2022-11-08 07:19] LABS: Alanine Aminotransferase 13 U/L (12-78); Albumin Level 2.3 g/dl (3.5-5.0); Albumin/Globulin Ratio 1.2 (1.1-1.8); Alkaline Phosphatase 69 U/L (38-126); Anion Gap 4.8 mEq/L (5-15); Aspartate Amino Transferase 21 U/L (14-36); Bilirubin,Total 0.3 mg/dl (0.2-1.3); Blood Urea Nitrogen 8 mg/dl (7-17); Calcium 7.4 mg/dl (8.4-10.2); Carbon Dioxide 24 mmol/L (22.0-30.0); Chloride 108 mmol/L (98-107); Creatinine Clearance Estimated 109 mL/min (50-200); Estimated Glomerular Filt Rate 100 ml/min (>60); GFR (African American) 121 ML/MIN (>60); Globulin 1.9 g/dL (1.3-3.2); Glucose 70 mg/dl (74-100); Potassium 3.8 mmoL/L (3.5-5.1); Sodium 133 mmol/L (136-145); Total Protein,Serum 4.2 g/dl (6.3-8.2)
[2022-11-08 07:58] LABS: Eosinophils % 2 % (0-3); Lymphocytes % 7 % (10-50); Monocytes % 7 % (2-9); Neutrophils % 84 % (42-76); Platelet Estimate Normal; RBC Morphology Normal; Total Cells Counted 100
--- NOTE | 2022-11-08 10:32 | EXP.DC.SUM ---
General Admission date:: 11/06/22 Discharge date: 11/08/22 HPI HPI HPI: PPD # 2 s/p at home Resting comfortably in bed this morning. No complaints or concerns. Light lochia. Voiding without difficulty and passing flatus. Tolerating regular diet. She denies fever/chills, chest pain and shortness of breath. Denies lightheadedness and dizziness. She would like to go home. Hospital Course Hospital Course Hospital Course: Ms Donna Davison is a 27 yo female who presented to ED on 11/06/22 with complaint of heavy vaginal bleeding. She stated she had not had a period for 5-6 months. She states she worked 3rd shift last night and started having sharp abdominal pains. Pain stopped around 0530. After she got off of work this morning she went to the construction site/home that was being remodeled by her grandfather. The house is vacant but had a mattress in one of the rooms. She states she woke up around noon in a pool of blood. She told the RN that she had a baby at the construction site on that mattress. She stated she did not know she was prior to delivery. She stated her and her grandfather covered the baby up with a blanket after delivery. She was admitted for septic shock prior to admission. WBC was 34.0, lactate was initial 4.4 and she was tachycardic. BP was normal and low at times. Blood cultures were drawn. She received IV fluids and antibiotics were started for suspected chorioamnionitis/endometritis. She received Clindamycin, Gentamicin and Ampicillin. Hgb and Hct PPD # 1 was 6.5 and 19.3. She received 2 units of PRBCs. After fluids, antibiotics and 2 units of PRBCs, leukocytosis greatly improved (12.4), Tachycardia resolved, BP stabilized and lactate was within normal limits. She was feeling well. She was discharged to home on PPD/hospital day # 2 with prescription for Ibuprofen. She was instructed to follow-up in the office in 2 weeks or sooner if needed. Exam Data for Last 24 hours Vital signs and Labs for Last 24 Hours: Temp Pulse Resp BP Pulse Ox 98.1 F 73 15 122/56 L 98 11/08/22 04:41 11/08/22 04:41 11/08/22 04:41 11/08/22 04:41 11/08/22 04:41 Laboratory Results - last 24 hr 11/06/22 19:03: Blood Type A Positive, Antibody Screen Negative, Crossmatch (AHG) See Detail 11/07/22 12:40: Hgb 10.9 L D, Hct 31.2 L 11/07/22 14:50: Random Gentamicin 0.8 11/07/22 18:40: Urine Opiates Screen Negative, Urine Methadone Screen Negative, Ur Barbituates Screen Negative, Ur Phencyclidine Scrn Negative, Ur Amphetamines Screen Negative, U Benzodiazepines Scrn Negative, Urine Cocaine Screen Negative, U Marijuana (THC) Screen Negative 11/07/22 18:46: Urine Color Yellow, Urine Appearance Sl cloudy, Urine pH 6.0, Ur Specific [place] >= 1.030, Urine Protein Trace, Urine Glucose (UA) Negative, Urine Ketones Negative, Urine Blood 3+, Urine Nitrate Negative, Urine Bilirubin Negative, Urine Urobilinogen 0.2, Ur Leukocyte Esterase Trace, Urine RBC 10-20, Urine WBC 3-5, Ur Squamous Epith Cells 3-5, Urine Bacteria Trace 11/08/22 06:03: ESR 41 H 11/08/22 06:03: C-Reactive Protein 26.3 H D 11/08/22 06:03: WBC 12.4 H, RBC 3.06 L D, Hgb 9.7 L D, Hct 28.0 L, MCV 91.4, MCH 31.6 H, MCHC 34.6, RDW 14.4, Plt Count 234, MPV 7.9, Neut % (Auto) 86.2 H, Lymph % (Auto) 9.3 L, [place] % (Auto) 3.6, Eos % (Auto) 0.6, Baso % (Auto) 0.3, Neut # (Auto) 10.7 H, Lymph # (Auto) 1.2, [place] # (Auto) 0.5, Eos # (Auto) 0.1, Baso # (Auto) 0.0, Total Counted 100, Neutrophils % (Manual) 84 H, Lymphocytes % (Manual) 7 L, Monocytes % (Manual) 7, Eosinophils % (Manual) 2, Platelet Estimate Normal, RBC Morphology Normal 11/08/22 06:03: Sodium 133 L, Potassium 3.8, Chloride 108 H, Carbon Dioxide 24, Anion Gap 4.8 L, BUN 8 D, Creatinine 0.70, Estimated Creat Clear 109, Estimated GFR 100, Est GFR ( Amer) 121, Glucose 70 L, Calcium 7.4 L, Total Bilirubin 0.3, AST 21, ALT 13, Alkaline Phosphatase 69, Total Protein 4.2 L, Albumin 2.3 L, Globulin 1.9, Albumin/Globulin Ratio 1.2
--- NOTE | 2022-11-08 10:44 | P.CONPHA_ITS ---
Pharmacy Consult Date: 11/08/22 Time: 10:45 Referring provider: DR. ESCUDERO Reason for Consult:: GENTAMICIN LEVELS Allergies Allergy/AdvReac Type Severity Reaction Status Date / Time No Known Allergies Allergy Verified 11/06/22 20:01 Home Medications Medication Instructions Recorded Confirmed Type ergocalciferol (vitamin D2) 1,250 1,250 mcg PO WEEKLY Supplement 11/07/22 11/07/22 History mcg (50,000 unit) capsule New Prescriptions to Start Prescriptions: Height: 1.68 m Weight: 57.153 kg Laboratory Results:: Laboratory Results - last 24 hr 11/06/22 19:03: Blood Type A Positive, Antibody Screen Negative, Crossmatch (AHG) See Detail 11/07/22 12:40: Hgb 10.9 L D, Hct 31.2 L 11/07/22 14:50: Random Gentamicin 0.8 11/07/22 18:40: Urine Opiates Screen Negative, Urine Methadone Screen Negative, Ur Barbituates Screen Negative, Ur Phencyclidine Scrn Negative, Ur Amphetamines Screen Negative, U Benzodiazepines Scrn Negative, Urine Cocaine Screen Negative, U Marijuana (THC) Screen Negative 11/07/22 18:46: Urine Color Yellow, Urine Appearance Sl cloudy, Urine pH 6.0, Ur Specific [place] >= 1.030, Urine Protein Trace, Urine Glucose (UA) Negative, Urine Ketones Negative, Urine Blood 3+, Urine Nitrate Negative, Urine Bilirubin Negative, Urine Urobilinogen 0.2, Ur Leukocyte Esterase Trace, Urine RBC 10-20, Urine WBC 3-5, Ur Squamous Epith Cells 3-5, Urine Bacteria Trace 11/08/22 06:03: ESR 41 H 11/08/22 06:03: C-Reactive Protein 26.3 H D 11/08/22 06:03: WBC 12.4 H, RBC 3.06 L D, Hgb 9.7 L D, Hct 28.0 L, MCV 91.4, MCH 31.6 H, MCHC 34.6, RDW 14.4, Plt Count 234, MPV 7.9, Neut % (Auto) 86.2 H, Lymph % (Auto) 9.3 L, Robertson % (Auto) 3.6, Eos % (Auto) 0.6, Baso % (Auto) 0.3, Neut # (Auto) 10.7 H, Lymph # (Auto) 1.2, Robertson # (Auto) 0.5, Eos # (Auto) 0.1, Baso # (Auto) 0.0, Total Counted 100, Neutrophils % (Manual) 84 H, Lymphocytes % (Manual) 7 L, Monocytes % (Manual) 7, Eosinophils % (Manual) 2, Platelet Estimate Normal, RBC Morphology Normal 11/08/22 06:03: Sodium 133 L, Potassium 3.8, Chloride 108 H, Carbon Dioxide 24, Anion Gap 4.8 L, BUN 8 D, Creatinine 0.70, Estimated Creat Clear 109, Estimated GFR 100, Est GFR ( Amer) 121, Glucose 70 L, Calcium 7.4 L, Total Bilirub in 0.3, AST 21, ALT 13, Alkaline Phosphatase 69, Total Protein 4.2 L, Albumin 2.3 L, Globulin 1.9, Albumin/Globulin Ratio 1.2 Medical History: Medical History (Updated 11/08/22 @ 10:44 by Sully Escudero DO) Anemia associated with acute blood loss Assessment and Plan Assessment and plan all Dx Assessment and Plan for all problems:: GENTAMICIN LEVELS AT 4.5 AND 12.5 HRS POST INFUSION WERE 4.4 MCG/ML AND 0.8 MCG/ML, RESPECTIVELY. CALCULATED CMAX AND CMIN WERE 9.27 MCG/ML AND 0.07 MCG/ML, RESPECTIVELY. RECOMMEND INCREASING DOSE OF GENTAMICIN TO 320 MG Q24H AT THIS TIME.
== END 2022-11-08 12:00 | disposition home or self-care (01) | DRG 776 ==
LOC: ER 19:58 → OB 20:19
PROVIDERS: Family Medicine; Nurse Practitioner Acute Care; Admitting Provider Obstetrics & Gynecology; Emergency Provider Emergency Medicine; PCP Pediatrics; Visit Provider Obstetrics & Gynecology
DX: Z39.0 Encounter for care and examination of mother immediately after delivery (principal); O85 Puerperal sepsis; R65.21 Severe sepsis with septic shock; D62 Acute posthemorrhagic anemia; O90.81 Anemia of the puerperium
CPT/HCPCS: 36415; 76856; 80048; 80053; 80170; 80305; 81001; 83605; 84703; 85007; 85014; 85018; 85025; 85651; 86140; 86850; 87040; 93005; 99285; C9803; J0290; P9016; U0003; U0005